=== PATIENT | male | born 1960 | race African-American/Black ===

== ENCOUNTER 2024-10-10 18:27 | Emergency (ER) | payer MEDICARE, SELFPAY ==
--- NOTE | ~2024-10-10 | CT_ITS ---
CT cervical spine wo con Ordering provider: Josh Sawyer PA-C History: . head trauma, neck pain . Comparison: None. Technique: CT of the cervical spine was performed without contrast. Sagittal and coronal reformatted images were also obtained and reviewed. Automated exposure control and iterative reconstruction benoit hnique were employed. The dose-length product was 636.69 mGy-cm. FINDINGS: VERTEBRAE: No subluxation or acute fracture. The occipital condyles are intact. Degenerative changes of the spine. DISC SPACES: Narrowing of the disc C5-C6. Uncovertebral joint osteoarthritic changes seen at the same level. Bilateral narrowing of the foramina at the same level is seen. PARASPINOUS SOFT TISSUES: Normal. IMPRESSION: No acute osseous abnormality cervical spine. Severe degenerative disc disease at the level of C5-C6. Reviewed, dictated and finalized at location A. LE [employer] DEVELOPER
--- NOTE | ~2024-10-10 | CT_ITS ---
CT brain wo con Ordering provider: Josh Sawyer PA-C History: 64 years Male with . head trauma, dizziness . Comparison: None. Technique: CT of the head without contrast. Radiation reduction technique utilized.The dose-length pr oduct was 756.67 mGy-cm. FINDINGS: BRAIN PARENCHYMA AND CSF SPACES: Mild leukoaraiosis and diffuse cortical atrophy. Mild atheromatous d isease. No midline shift, mass effect or hemorrhage. The brain parenchyma and CSF spaces are otherwi se normal. Prominent CSF anterior to the left temporal pole which may indicate arachnoid cyst. Empty sella turcica. VISUALIZED PARANASAL SINUSES: Bilateral maxillary sinus disease. MASTOIDS: Well aerated. BONES: The bones appear intact. SOFT TISSUES: Visualized nasopharynx is normal. Scalp hematoma seen in the left occipital area. Othe rwise, the Superficial soft tissues are normal. IMPRESSION: No acute intracranial findings. Reviewed, dictated and finalized at location A. P [employer] INSTRUCTOR
[2024-10-10 18:23] VITALS: BP 176/101; PULSE 68; RESP 16; TEMP 36.6; O2SAT 100
[2024-10-10 18:41] VITALS: BP 176/101; PULSE 60; RESP 16; TEMP 36.4; O2SAT 100
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
[2024-10-10] MEDS: IBUPROFEN 400 MG TABLET PO (19:09)
[2024-10-10] MEDS: HYDROcodone/acetaminophen (*CRX) 5-325 MG TABLET 1 TAB PO (19:10)
[2024-10-10 19:36] VITALS: BP 141/80; PULSE 60; RESP 16; TEMP 36.4; O2SAT 99
[2024-10-10 20:44] VITALS: BP 134/83; PULSE 57; RESP 16; TEMP 36.8; O2SAT 98
== END 2024-10-10 21:33 | disposition home or self-care (01) ==
PROVIDERS: Emergency Provider Physician Assistant
DX: S09.90XA Unspecified injury of head, initial encounter (principal); W22.8XXA Striking against or struck by other objects, initial encounter
CPT/HCPCS: 70450; 72125; 99284; A9270